=== PATIENT | female | born 1950 | race Two or more races ===

== ENCOUNTER 2016-09-26 09:19 | Day surgery (SDC) | payer MEDICARE, OTHER ==
[2016-09-25 17:36] LABS: Albumin 4.2 g/dL (3.4-5.0); Basophils # (auto) 0 uL; Basophils % (auto) 0.4 % (0.0-2.0); CONDITION Y; Calcium 9.1 mg/dL (8.5-10.1); DEFINITIVE SEE PRINTOUT; Eosinophils # (auto) 0.1 uL; Eosinophils % (auto) 0.6 % (0.0-7.0); Hemoglobin 11.6 g/dL (12.2-16.2); Lymphocytes % (auto) 21.8 % (10.0-50.0); Mean Corpuscular Hemoglobin 24.7 pg (28.0-32.0); Mean Corpuscular Hgb Conc. 32.1 g/dL (32.0-36.0); Mean Corpuscular Volume 76.8 fL (80.0-100.0); Mean Platelet Volume 9.8 fL (7.4-10.4); Monocytes # (auto) 0.4 uL; Monocytes % (auto) 4.9 % (0.0-12.0); Neutrophils # (auto) 6.5 uL; Neutrophils % (auto) 72.3 % (37.0-80.0); Platelet Count (auto) 376 10^3/uL (140-450); Potassium 4.2 mmol/L (3.5-5.1)
[2016-09-25 17:37] LABS: INR 0.92 (0.9-1.15); Partial Thromboplastin Time 27.3 sec (22.64-33.71)
[2016-09-25 17:39] LABS: BUN/Creatinine Ratio 29.4
[2016-09-25 17:42] LABS: Bilirubin, Total 0.2 mg/dL (0.2-1.0); Total Protein 8.8 g/dL (6.4-8.2); Urine Bilirubin Negative (Negative); Urine Blood Negative /uL (Negative); Urine Color Yellow (Yellow); Urine Glucose Normal (Normal); Urine Ketone Negative (Negative); Urine Mucus FEW (None Seen); Urine Nitrite Negative (Negative); Urine RBC <1 /hpf (0 - 4); Urine Urobilinogen Normal (Negative); Urine pH 5.5 (5.0-8.0)
[2016-09-25 17:44] LABS: Red Cell Distribution Width 24.6 % (11.6-16.0)
[2016-09-25 18:11] LABS: Anisocytosis Slight; Burr Cells FEW; Giant Platelets Few; Hypochromia Slight; Ovalocytes FEW; Platelet Estimate Adequate
[~2016-09-26] VITALS: Ht 165.1 cm; Wt 86.2 kg
[~2016-09-26 09:19] MED LIST: AMLO5TAB2 PO; LISI10TA6 PO; PREG50CA PO
[2016-09-26] MEDS ORDERED: ceFAZolin 1GM/50ML D5W 50 ML IV ONE (10:01)
[2016-09-26] MEDS ORDERED: BUPIVACAINE 0.75% INJ 10ML MPV SDV IJ ONE (11:11)
[2016-09-26] MEDS ORDERED: BUPIVACAINE W/ EPINEPH 0.25% INJ 50ML MDV ONE (11:11)
[2016-09-26] MEDS ORDERED: PROPOFOL 10 MG/ML 20 ML IV ONE (11:44)
[2016-09-26] MEDS ORDERED: ONDANSETRON HCL 4 MG/2 ML VIAL ONE (11:44)
[2016-09-26] MEDS ORDERED: fentaNYL CITRATE 100 MCG/2 ML VL ONE (11:44)
[2016-09-26] MEDS ORDERED: SODIUM CHLORIDE LOCK 10 ML ONE (11:44)
[2016-09-26] MEDS ORDERED: MIDAZOLAM HCL 1MG/1ML-2 ML VIAL ONE (11:44)
[2016-09-26] MEDS ORDERED: HYDROmorphone HCL 2 MG/ML VL IV PRN (12:30)
[2016-09-26] MEDS ORDERED: METOCLOPRAMIDE HCL 5MG/ml INJ 2ml VIAL IV ONE (12:30)
[2016-09-26] MEDS ORDERED: KETOROLAC TROMETH 30 MG/ML 1ML VIAL IV ONE (12:30)
[2016-09-26 13:17] VITALS: BP 127/71
== END 2016-09-26 13:23 | disposition home or self-care (01) ==
LOC: SUR 09:19
PROVIDERS: ATTEND Podiatrist Foot & Ankle Surgery
DX: M65.872 Other synovitis and tenosynovitis, left ankle and foot (principal); M25.572 Pain in left ankle and joints of left foot; Z90.710 Acquired absence of both cervix and uterus
CPT/HCPCS: 27626; 36415; 80053; 81001; 85025; 85610; 85730; J0690; J1170; J2250; J2405; J2704; J3010; J3490; L3260

== ENCOUNTER 2016-12-12 07:07 | Day surgery (SDC) | payer MEDICARE, OTHER ==
[2016-12-10 11:31] LABS: Urine RBC None Seen /hpf (0 - 4)
[2016-12-10 11:57] LABS: Basophils # (auto) 0 uL; Basophils % (auto) 0.4 % (0.0-2.0); Eosinophils # (auto) 0.1 uL; Hemoglobin 8.7 g/dL (12.2-16.2); Lymphocytes # (auto) 1.4 uL; Lymphocytes % (auto) 17.8 % (10.0-50.0); Mean Corpuscular Hgb Conc. 31.1 g/dL (32.0-36.0); Mean Corpuscular Volume 74.1 fL (80.0-100.0); Mean Platelet Volume 8.2 fL (6.9-10.8); Monocytes # (auto) 0.3 uL; Monocytes % (auto) 4.3 % (0.0-12.0); Neutrophils # (auto) 5.9 uL; Neutrophils % (auto) 76.5 % (37.0-80.0); Platelet Count (auto) 292 10^3/uL (140-450); Red Cell Distribution Width 18.3 % (11.8-14.3); White Blood Cell 7.6 10^3/uL (4.4-10.8)
[2016-12-10 11:58] LABS: INR 0.96 (0.9-1.15); Partial Thromboplastin Time 25.7 sec (22.64-33.71); Prothrombin Time 10.5 sec (9.37-12.3)
[2016-12-10 12:21] LABS: Platelet Estimate Adequate
[2016-12-10 12:22] LABS: Anisocytosis Slight; BUN/Creatinine Ratio 13.8; Bilirubin, Total 0.2 mg/dL (0.2-1.0); Calcium 8.9 mg/dL (8.5-10.1); Hypochromia Moderate; Microcytosis Moderate; Potassium 3.7 mmol/L (3.5-5.1)
[2016-12-10 12:29] LABS: Urine Bilirubin Negative (Negative); Urine Blood Negative /uL (Negative); Urine Color Yellow (Yellow); Urine Glucose Normal (Normal); Urine Ketone Negative (Negative); Urine Nitrite Negative (Negative); Urine Squamous Epithelial Cell FEW /hpf (<5); Urine Urobilinogen Normal (Negative)
[~2016-12-12] VITALS: Ht 165.1 cm; Wt 83.9 kg
[~2016-12-12 07:07] MED LIST changes: +METF-370 PO; -PREG50CA PO
[2016-12-12] MEDS ORDERED: ceFAZolin 1GM/50ML D5W 50 ML IV ONE (08:21)
[2016-12-12] MEDS ORDERED: BUPIVACAINE 0.75% INJ 10ML MPV SDV IJ ONE (09:02)
[2016-12-12] MEDS ORDERED: fentaNYL CITRATE 100 MCG/2 ML VL ONE (09:23)
[2016-12-12] MEDS ORDERED: MIDAZOLAM HCL 1MG/1ML-2 ML VIAL ONE (09:24)
[2016-12-12] MEDS ORDERED: PROPOFOL 10 MG/ML 20 ML IV ONE (09:26)
[2016-12-12] MEDS ORDERED: hydrALAZINE HCL 20 MG/ML VL IV PRN (10:15)
[2016-12-12] MEDS ORDERED: ONDANSETRON HCL 4 MG/2 ML VIAL IV ONE (10:15)
[2016-12-12] MEDS ORDERED: HYDROmorphone HCL 2 MG/ML VL IV PRN (10:15)
[2016-12-12] MEDS ORDERED: ePHEDrine SULFATE 50 MG/ML AMP IV PRN (10:15)
[2016-12-12 10:35] VITALS: BP 118/87
== END 2016-12-12 10:36 | disposition home or self-care (01) ==
LOC: SUR 07:07
PROVIDERS: ATTEND Podiatrist Foot & Ankle Surgery
DX: T81.30XA Disruption of wound, unspecified, initial encounter (principal); E66.9 Obesity, unspecified; E11.9 Type 2 diabetes mellitus without complications; Z90.710 Acquired absence of both cervix and uterus
CPT/HCPCS: 13160; 36415; 80053; 81001; 82962; 85025; 85610; 85730; 88304; C1887; J0690; J2250; J2704; J3010; J3490